=== PATIENT | male | born 1950 | race Hispanic/Latino ===

== ENCOUNTER 2022-12-23 10:27 | Day surgery (SDC) | payer OTHER ==
[~2022-12-23] VITALS: Ht 177.8 cm; Wt 95.3 kg
[2022-12-23] MEDS ORDERED: 0.9%NACL 1000ML 1,000 ML IV ONE (12:06)
[2022-12-23 12:25] VITALS: BP 127/75; PULSE 55; RESP 16
[2022-12-23 12:43] LABS: SARS-CoV-2, RNA, NAAT NEGATIVE SARS CoV-2 (NEGATIVE)
[2022-12-23] MEDS ORDERED: TAMS-1 PO (13:16)
[2022-12-23] MEDS ORDERED: FLUO40CA49 PO (13:16)
[2022-12-23] MEDS ORDERED: MIRT-93 PO (13:16)
[2022-12-23] MEDS ORDERED: PROPOFOL 10 MG/ML 20ML VIAL IV ONE ×2 (13:29→13:59)
[2022-12-23] MEDS ORDERED: LIDOCAINE PF 100MG/5ML (2%) SYRINGE 5ML ONE (13:30)
== END 2022-12-23 14:48 | disposition home or self-care (01) ==
LOC: DAH 10:27 → ENDO 10:27
PROVIDERS: ATTEND Internal Medicine Gastroenterology
DX: K21.00 Gastro-esophageal reflux disease with esophagitis, without bleeding (principal); Z20.822 Contact with and (suspected) exposure to COVID-19; K31.A19 Gastric intestinal metaplasia without dysplasia, unspecified site; K22.70 Barrett's esophagus without dysplasia; K29.50 Unspecified chronic gastritis without bleeding; E78.5 Hyperlipidemia, unspecified; E11.9 Type 2 diabetes mellitus without complications; Z87.19 Personal history of other diseases of the digestive system; Z86.010 Personal history of colon polyps; Z98.890 Other specified postprocedural states; Z87.891 Personal history of nicotine dependence; Z72.89 Other problems related to lifestyle
CPT/HCPCS: 88313; 88305; 88342; 87635; 43239; J7030 ×2; J2001; J2704 ×2; A4620; A4215 ×2; A4223; A4657 ×2; A7002; A4222; A4221; A4663; A4606; J3490